=== PATIENT | female | born 1970 | race Two or more races ===

== ENCOUNTER 2016-06-24 13:40 | Emergency (ER) | payer SELFPAY ==
--- NOTE | 2016-06-24 14:49 | EDM.PDOC ---
ED HPI ENT - General Chief Complaint: ENT Problem Stated Complaint: RT SIDE OF FACE HURTS Time Seen by Provider: 06/24/16 14:20 Source of Information: Reports: Patient History Limitations: Reports: No limitations - History of Present Illness INITIAL COMMENTS - FREE TEXT/NARRATIVE: History of present illness: 46-year-old Pashto-speaking patient presenting with acute pain in the ear and throat. With the use of intraoperative device JAREN was able to dialogue with patient and complete a thorough H&P which indicated patient has had chronic ear infections, throat infections, and some questionable ambiguous history of your ear nose and throat concerns that she was not able to clarify. Family is present and there also attempting to help.] Review of systems: As per history of present illness and below otherwise all systems reviewed and negative. Past medical history: As per history of present illness and as reviewed below otherwise noncontributory. Surgical history: As per history of present illness and as reviewed below otherwise noncontributory. Social history: No reported history of drug or alcohol abuse. Family history: As per history of present illness and as reviewed below otherwise noncontributory. Physical exam: HEENT: Atraumatic, normocephalic, pupils reactive, negative for conjunctival pallor or scleral icterus, mucous membranes moist with right tonsil noted to have significant amount of edema and crit to compare appearance more so than the left, uvula continues to be midline, but there is a erythematous appearance to the external skin over the eustachian tube and into the throat area consistent with the area of inflammation internally, neck supple, nontender, trachea midline. Lungs: Clear to auscultation, breath sounds equal bilaterally, chest nontender. Heart: S1S2, regular, negative for clicks, rubs, or JVD. Abdomen: Soft, nondistended, nontender. Negative for masses or hepatosplenomegaly. Negative for costovertebral tenderness. Pelvis: Stable nontender. Genitourinary: Deferred. Rectal: Deferred. Extremities: Atraumatic, negative for cords or calf pain. Neurovascular unremarkable. Neuro: Awake, alert, oriented. Cranial nerves II through XII unremarkable. Cerebellum unremarkable. Motor and sensory unremarkable throughout. Exam nonfocal. Diagnostics: [Rapid strep.] Therapeutics: [] Impression: [Tonsillitis] Plan: [Necrotic followup with ENT] Definitive disposition and diagnosis as appropriate pending reevaluation and review of above. - Related Data Allergies/ADRs: Allergies Allergy/AdvReac Type Severity Reaction Status Date / Time No Known Allergies Allergy Verified 06/24/16 14:20 Home Meds: Home Meds Amoxicillin/Potassium Clav [Augmentin 875-125 Tablet] 1 each PO BID #20 tablet 06/24/16 [Rx] Past Medical History - Past Health History Medical/Surgical History: Denies Medical/Surgical History Social & Family History - Family History Family Medical History: Noncontributory - Tobacco Use Smoking Status *Q: Never Smoker - Recreational Drug Use Recreational Drug Use: No ED ROS ENT - Review of Systems Review Of Systems: See Below (See history of present illness) ED EXAM, ENT - Physical Exam Exam: See Below (See history of present illness) Course - Vital Signs Last Recorded V/S: Last Vital Signs Temp 36.6 C 06/24/16 15:38 Pulse 66 06/24/16 15:38 Resp 18 06/24/16 14:20 BP 129/93 H 06/24/16 15:38 Pulse Ox 99 06/24/16 14:20 - Orders/Labs/Meds Orders: Active Orders 24 hr Category Date Time Status CULTURE STREP A CONFIRMATION [RM] Stat Lab 06/24/16 15:00 Results STREP SCRN A RAPID W CULT CONF [RM] Stat Lab 06/24/16 15:00 Results Sodium Chloride 0.9% [Normal Saline] 1,000 ml Med 06/24/16 15:12 Active IV STAT Medication Orders Sodium Chloride (Normal Saline) 1,000 mls @ 999 mls/hr IV STAT ONE Stop: 06/24/16 16:12 Last Admin: 06/24/16 15:37 Dose: 999 mls/hr Labs: Laboratory Tests 06/24/16 06/24/16 Range/Units 15:18 15:18 WBC 6.16 (4.0-11.0) K/uL RBC 4.28 L (4.30-5.90) M/uL Hgb 13.1 (12.0-16.0) g/dL Hct 38.7 (36.0-46.0) % MCV 90.4 (80.0-98.0) fL MCH 30.6 (27.0-32.0) pg MCHC 33.9 (31.0-37.0) g/dL RDW Std Deviation 42.1 (28.0-62.0) fl RDW Coeff of Josie 13 (11.0-15.0) % Plt Count 268 (150-400) K/uL MPV 9.40 (7.40-12.00) fL Neut % (Auto) 60.2 (48.0-80.0) % Lymph % (Auto) 31.2 (16.0-40.0) % Gulf % (Auto) 5.5 (0.0-15.0) % Eos % (Auto) 2.6 (0.0-7.0) % Baso % (Auto) 0.5 (0.0-1.5) % Neut # (Auto) 3.7 (1.4-5.7) K/uL Lymph # (Auto) 1.9 (0.6-2.4) K/uL Gulf # (Auto) 0.3 (0.0-0.8) K/uL Eos # (Auto) 0.2 (0.0-0.7) K/uL Baso # (Auto) 0.0 (0.0-0.1) K/uL Nucleated RBC % 0.0 /100WBC Nucleated RBCs # 0 K/uL Sodium 140 (136-146) mmol/L Potassium 4.0 (3.5-5.1) mmol/L Chloride 108 (98-110) mmol/L Carbon Dioxide 24 (21-31) mmol/L BUN 8 (6.0-23.0) mg/dL Creatinine 0.7 (0.6-1.5) mg/dL Est Cr Clr Drug Dosing 91.00 mL/min Estimated GFR (MDRD) > 60.0 ml/min Glucose 91 (60-110) mg/dL Calcium 9.2 (8.8-10.8) mg/dL Total Bilirubin 1.0 (0.1-1.5) mg/dL AST 17 (5-40) IU/L ALT 14 (8-54) IU/L Alkaline Phosphatase 82 (40-150) Total Protein 7.6 (6.0-8.0) g/dL Albumin 4.1 (3.5-5.0) g/dL Globulin 3.5 (2.0-3.5) g/dL Albumin/Globulin Ratio 1.2 L (1.3-2.8) Meds: Medications Generic Name Dose Route Start Last Admin Trade Name Selin PRN Reason Stop Dose Admin Sodium Chloride 1,000 mls @ 999 mls/hr 06/24/16 15:12 06/24/16 15:37 Normal Saline IV 06/24/16 16:12 999 mls/hr STAT ONE Administration Departure - Departure Time of Disposition: 16:04 Disposition: Home, Self-Care 01 Condition: good Clinical Impression: Tonsillitis Prescriptions: Amoxicillin/Potassium Clav [Augmentin 875-125 Tablet] 1 each PO BID #20 tablet Instructions: Pharyngitis, [id number] Referrals: PCP,Stacia [Primary Care Provider] - Liz Matos PA [Physician Signing Agent] - Forms: ED Department Discharge Additional Instructions: The following information is given to patients seen in the emergency department who are being discharged to home. This information is to outline your options for follow-up care. We provide all patients seen in our emergency department with a follow-up referral. The need for follow-up, as well as the timing and circumstances, are variable depending upon the specifics of your emergency department visit. If you don't have a primary care physician on staff, we will provide you with a referral. We always advise you to contact your personal physician following an emergency department visit to inform them of the circumstance of the visit and for follow-up with them and/or the need for any referrals to a consulting specialist. The emergency department will also refer you to a specialist when appropriate. This referral assures that you have the opportunity for follow-up care with a specialist. All of these measure are taken in an effort to provide you with optimal care, which includes your follow-up. Under all circumstances we always encourage you to contact your private physician who remains a resource for coordinating your care. When calling for follow-up care, please make the office aware that this follow-up is from your recent emergency room visit. If for any reason you are refused follow-up, please contact the [facility] Emergency Department at and asked to speak to the emergency department charge nurse. Take medication as directed Followup ENT as discussed Return to ER as needed as discussed [facility] - ENT [facility] [address] [place] [id number] - My Orders Last 24 Hours: My Active Orders 06/24/16 15:00 CULTURE STREP A CONFIRMATION [RM] Stat STREP SCRN A RAPID W CULT CONF [RM] Stat 06/24/16 15:12 Sodium Chloride 0.9% [Normal Saline] 1,000 ml IV STAT - Assessment/Plan Last 24 Hours: My Active Orders 06/24/16 15:00 CULTURE STREP A CONFIRMATION [RM] Stat STREP SCRN A RAPID W CULT CONF [RM] Stat 06/24/16 15:12 Sodium Chloride 0.9% [Normal Saline] 1,000 ml IV STAT
[2016-06-24] MEDS ORDERED: Sodium Chloride 0.9% 1,000 ML IV ONE (15:12)
[2016-06-24 15:45] LABS: CHLORIDE,CL 108 mmol/L (98-110); SODIUM,NA 140 mmol/L (136-146)
[2016-06-24 16:37] VITALS: BP 139/80
== END 2016-06-24 16:30 | disposition home or self-care (01) ==
LOC: MW.ED 13:40
DX: J03.90 Acute tonsillitis, unspecified (principal)
CPT/HCPCS: 36415; 80053; 85025; 87081; 87880; 96360; 99283; J7040

== ENCOUNTER 2017-02-20 16:54 | Emergency (ER) | payer SELFPAY | END 2017-02-20 17:09 | disposition left against medical advice (07) | LOC: MW.ED 16:54 | DX: Z53.21 Procedure and treatment not carried out due to patient leaving prior to being seen by health care provider (principal) ==

== ENCOUNTER 2017-02-20 20:07 | Emergency (ER) | payer SELFPAY ==
--- NOTE | 2017-02-20 21:29 | EDM.PDOC ---
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 When I interviewed the patient she is having regular periods and in fact had one in January but she did not get her period This month and they were concerned that she could be and he was asking questions about her potential to get going forward at her age. She has not had any headache chest pain shortness of breath abdominal pain nausea vomiting urinary complaints or vaginal bleeding. She does not have a local care provider. She has no history of hypertension despite her triage blood pressure Review of systems: As per history of present illness and below otherwise all systems reviewed and negative. Past medical history: As per history of present illness and as reviewed below otherwise noncontributory. Surgical history: As per history of present illness and as reviewed below otherwise noncontributory. Social history: No reported history of drug or alcohol abuse. Family history: As per history of present illness and as reviewed below otherwise noncontributory. Physical exam: Gen.: Well-developed well-nourished female who is nontoxic and vital signs been reviewed by me HEENT: Atraumatic, normocephalic, negative for conjunctival pallor or scleral icterus, mucous membranes moist, neck supple, nontender, trachea midline. Lungs: Clear to auscultation, breath sounds equal bilaterally, chest nontender. Heart: S1S2, regular rate and rhythm no overt murmurs. Abdomen: Soft, nondistended, nontender. NABS Pelvis: Deferred Genitourinary: Deferred. Rectal: Deferred. Extremities: Atraumatic, negative for cords or calf pain. Neurovascular unremarkable. Neuro: Awake, alert, oriented. Cranial nerves II through XII unremarkable. Cerebellum unremarkable. Motor and sensory unremarkable throughout. Exam nonfocal. Diagnostics: Urine test Therapeutics: [] Discussed with the patient and the that currently her test is negative but as it is not been a complete month since her last period that would need to be rechecked. If she does not get her period she would need to seek care in the clinic to evaluate why that is occurring. I also informed him that I would not be able to do any testing to determine her level of fertility at this point and again that will be a clinic visit and evaluation. I did discuss with him and the patient her blood pressure and the need to follow-up with that in the clinic as she is not having any end organ issues and that might need to be addressed with medication going forward. I advised her on dietary restrictions of salt. Impression: Missed menstrual cycle, worried well, rule out new hypertension asymptomatic Definitive disposition and diagnosis as appropriate pending reevaluation and review of above. Headache Pain Score (Numeric/FACES): 7 - Related Data Allergies Allergy/AdvReac Type Severity Reaction Status Date / Time No Known Allergies Allergy Verified 02/20/17 21:13 Home Meds: Home Meds . 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 ED EXAM, GENERAL - Physical Exam Exam: See Below (see dictation) Course - Vital Signs Last Recorded V/S: Last Vital Signs Temp 35.3 C 02/20/17 21:10 Pulse 65 02/20/17 21:10 Resp 12 02/20/17 21:10 BP 161/101 H 02/20/17 21:10 Pulse Ox 100 02/20/17 21:10 - Orders/Labs/Meds Labs: Laboratory Tests 02/20/17 Range/Units 20:45 Urine HCG, Qual NEGATIVE (NEGATIVE) Departure - Departure Time of Disposition: 21:28 Disposition: Home, Self-Care 01 Condition: Good Clinical Impression: Worried well Hypertension Qualifiers: Hypertension type: unspecified Qualified Code(s): I10 - Essential (primary) hypertension - Discharge Information Referrals: PCP,None [Primary Care Provider] - Additional Instructions: The following information is given to patients seen in the emergency department who are being discharged to home. This information is to outline your options for follow-up care. We provide all patients seen in our emergency department with a follow-up referral. The need for follow-up, as well as the timing and circumstances, are variable depending upon the specifics of your emergency department visit. If you don't have a primary care physician on staff, we will provide you with a referral. We always advise you to contact your personal physician following an emergency department visit to inform them of the circumstance of the visit and for follow-up with them and/or the need for any referrals to a consulting specialist. The emergency department will also refer you to a specialist when appropriate. This referral assures that you have the opportunity for followup care with a specialist. All of these measure are taken in an effort to provide you with optimal care, which includes your followup. Under all circumstances we always encourage you to contact your private physician who remains a resource for coordinating your care. When calling for followup care, please make the office aware that this follow-up is from your recent emergency room visit. If for any reason you are refused follow-up, please contact the [facility] emergency department at and ask to speak to the emergency department charge nurse. [facility] Primary care- Internal Medicine and Family [address] [address] [facility] Primary care-Women's Health [address] [place] [id number] Please contact our clinic for follow-up appointment to address issues with her menstrual cycle as we discussed. Please also discussed with the clinic your blood pressure. Please reduce or eliminate salt in her diet and return to ER as needed and as discussed
[2017-02-21 00:27] VITALS: BP 160/86
== END 2017-02-20 22:00 | disposition home or self-care (01) ==
LOC: MW.ED 20:07
DX: I10 Essential (primary) hypertension (principal); N92.6 Irregular menstruation, unspecified
CPT/HCPCS: 81025; 99283

== ENCOUNTER 2017-02-24 14:27 | Emergency (ER) | payer SELFPAY ==
--- NOTE | 2017-02-24 15:45 | EDM.PDOC ---
ED HPI GENERAL MEDICAL PROBLEM - General Chief Complaint: General Stated Complaint: PT WOULD LIKE TO BE CHECK Time Seen by Provider: 02/24/17 15:20 - History of Present Illness INITIAL COMMENTS - FREE TEXT/NARRATIVE: 46 year old fm presents to ED with questions regarding her fertility. She does not speak Yoruba but does and is interpreting for her. She is wondering if she is still fertile because she would like to have a baby. She is still menstruating regularly every month and denies any changes in her menstrual cycle. She does not have a PCP or [facility] doc she sees here. - Related Data Allergies Allergy/AdvReac Type Severity Reaction Status Date / Time No Known Allergies Allergy Verified 02/24/17 15:02 Home Meds: Home Meds . [No Known Home Meds] 02/20/17 [History] Past Medical History - Past Health History Medical/Surgical History: Denies Medical/Surgical History [employer] History: Reports: Endocrine/Metabolic History: Reports: Diabetes, Type I Other Endocrine/Metabolic History: Does not take insulin, does check BG regularly, it runs in the 140s Social & Family History - Family History Family Medical History: Noncontributory - Tobacco Use Smoking Status *Q: Never Smoker Second Hand Smoke Exposure: No - Caffeine Use Caffeine Use: Reports: None - Recreational Drug Use Recreational Drug Use: No ED ROS GENERAL - Review of Systems Review Of Systems: See Below Constitutional: Reports: No Symptoms HEENT: Reports: No Symptoms Respiratory: Reports: No Symptoms Cardiovascular: Reports: No Symptoms Endocrine: Reports: No Symptoms GI/Abdominal: Reports: No Symptoms : Reports: No Symptoms Musculoskeletal: Reports: No Symptoms Skin: Reports: No Symptoms Neurological: Reports: No Symptoms Psychiatric: Reports: No Symptoms Hematologic/Lymphatic: Reports: No Symptoms Immunologic: Reports: No Symptoms ED EXAM, GENERAL - Physical Exam Exam: See Below Exam Limited By: Other General Appearance: Alert, WD/WN, No Apparent Distress Ears: Normal External Exam Nose: Normal Inspection Throat/Mouth: Normal Inspection Head: Atraumatic, Normocephalic Neck: Normal Inspection Respiratory/Chest: No Respiratory Distress, Lungs Clear, Normal Breath Sounds Cardiovascular: Normal Peripheral Pulses, Regular Rate, Rhythm GI/Abdominal: Normal Bowel Sounds, Soft, Non-Tender, No Distention Back Exam: Normal Inspection Extremities: Normal Inspection, Non-Tender, No Pedal Edema, Normal Capillary Refill Neurological: Alert, Oriented Psychiatric: Normal Affect Skin Exam: Warm, Dry, Intact Lymphatic: No Adenopathy Course - Vital Signs Last Recorded V/S: Last Vital Signs Temp 36.6 C 02/24/17 14:58 Pulse 65 02/24/17 14:58 Resp 16 02/24/17 14:58 BP 137/84 02/24/17 14:58 Pulse Ox 100 02/24/17 14:58 Departure - Departure Time of Disposition: 15:46 Disposition: Home, Self-Care 01 Condition: Good Clinical Impression: Encounter for fertility planning - Discharge Information Referrals: PCP,None [Primary Care Provider] - Dwayne Finney MD [Physician] - (appointment scheduled for March 17, 2017 at 3: 00 pm ) Additional Instructions: The following information is given to patients seen in the emergency department who are being discharged to home. This information is to outline your options for follow-up care. We provide all patients seen in our emergency department with a follow-up referral. The need for follow-up, as well as the timing and circumstances, are variable depending upon the specifics of your emergency department visit. If you don't have a primary care physician on staff, we will provide you with a referral. We always advise you to contact your personal physician following an emergency department visit to inform them of the circumstance of the visit and for follow-up with them and/or the need for any referrals to a consulting specialist. The emergency department will also refer you to a specialist when appropriate. This referral assures that you have the opportunity for followup care with a specialist. All of these measure are taken in an effort to provide you with optimal care, which includes your followup. Under all circumstances we always encourage you to contact your private physician who remains a resource for coordinating your care. When calling for followup care, please make the office aware that this follow-up is from your recent emergency room visit. If for any reason you are refused follow-up, please contact the [facility] emergency department at and asked to speak to the emergency department charge nurse. - Problem List Review Problem List Initiated/Reviewed/Updated: Yes - Assessment/Plan Plan: Diagnostics: none Therapeutics: none Assessment: questions regarding Fertility Plan: f/u with [facility] - appointment scheduled for 03/17/17
[2017-02-24 16:11] VITALS: BP 146/91
== END 2017-02-24 16:05 | disposition home or self-care (01) ==
LOC: MW.ED 14:27
DX: Z31.41 Encounter for fertility testing (principal); E10.9 Type 1 diabetes mellitus without complications
CPT/HCPCS: 99282

== ENCOUNTER 2017-04-18 18:52 | Emergency (ER) | payer SELFPAY ==
--- NOTE | 2017-04-18 19:26 | EDM.PDOC ---
ED HPI GENERAL MEDICAL PROBLEM - General Chief Complaint: General Stated Complaint: RAPID WEIGHT LOSS, NERVOUS Time Seen by Provider: 04/18/17 19:13 Source of Information: Reports: Patient History Limitations: Reports: No Limitations - History of Present Illness INITIAL COMMENTS - FREE TEXT/NARRATIVE: HISTORY AND PHYSICAL: History of present illness: Patient is a 47-year-old female who presents to the emergency room today with complaints of rapid weight loss and feeling nervous over the past 3 weeks. The at the bedside states that she has in her mid back to upper neck and bilateral ear pain. She is concerned as she has noticed a weight loss over the past 3 weeks and she feels "nervous all the time". The patient is unable to tell me how much weight she has lost over the past 3 weeks but "has no appetite ". does say they have had some recent "family issues" which has caused both of them increased stress. He is requesting that I give her medication to alleviate her anxiety. Review of systems: As per history of present illness and below otherwise all systems reviewed and negative. Past medical history: As per history of present illness and as reviewed below otherwise noncontributory. Surgical history: As per history of present illness and as reviewed below otherwise noncontributory. Social history: No reported history of drug or alcohol abuse. Family history: As per history of present illness and as reviewed below otherwise noncontributory. Physical exam: General: Well-developed and well-nourished 47-year-old female. Alert and oriented. Nontoxic appearing and in no acute distress. HEENT: Atraumatic, normocephalic, pupils reactive, negative for conjunctival pallor or scleral icterus, mucous membranes moist, TMs cloudy bilaterally with no bulging. Her throat is clear, neck supple, nontender, trachea midline. No meningeal signs. No drooling or trismus. Lungs: Clear to auscultation, breath sounds equal bilaterally, chest nontender. Heart: S1S2, regular rate and rhythm Abdomen: Soft, nondistended, nontender. Negative for masses or hepatosplenomegaly. Negative for costovertebral tenderness. Pelvis: Stable nontender. Genitourinary: Deferred. Rectal: Deferred. C-Spine/Back: No pinpoint vertebral tenderness upon palpation. No crepitus, step -offs or obvious deformities. Patient is ambulatory with a steady gait. Extremities: Atraumatic, moves all per self without difficulty or defecits, negative for cords or calf pain. Neurovascular unremarkable. Neuro: Awake, alert, oriented. Cranial nerves II through XII unremarkable. Cerebellum unremarkable. Motor and sensory unremarkable throughout. Exam nonfocal. All of her lab results today are normal. I have shared this information with the patient and . As we continued to talk about her follow-up care, they share that they are less concerned about her weight loss and are now inquiring about her overall health and why she is having difficulty getting . Patient has been seen twice in the emergency room in February 2017, with request for evaluation to assess her fertility. Patient and her have been trying to get for several months, without success. We did have a lengthy discussion that it not ideal for her to use the ED for family planning concerns. She has been referred to the women's health clinic and/or [facility]. Family is now requesting a prescription for her anxiety, encourage them to follow up with primary care or seek counseling for further management and care of this. Diagnostics: CBC, CMP, EKG, UA, HCGU, TSH Therapeutics: [] Impression: 1. Worried Well 2. Anxiety Plan: 1. All of her labs today were normal. 2. You may want to see a primary care provider or seek counseling for your anxiety that you have been experiencing. 3. Please follow-up with your primary care provider in the next 1-2 days. Return to the ED as needed and as discussed. Definitive disposition and diagnosis as appropriate pending reevaluation and review of above. Duration: Week(s):, Chronic Location: Reports: Generalized - Related Data Allergies Allergy/AdvReac Type Severity Reaction Status Date / Time No Known Allergies Allergy Verified 04/18/17 19:33 Home Meds: Home Meds . [No Known Home Meds] 02/20/17 [History] Past Medical History - Past Health History Medical/Surgical History: Denies Medical/Surgical History [employer] History: Reports: Endocrine/Metabolic History: Reports: Diabetes, Type I Other Endocrine/Metabolic History: Does not take insulin, does check BG regularly, it runs in the 140s Social & Family History - Family History Family Medical History: Noncontributory - Tobacco Use Smoking Status *Q: Never Smoker Second Hand Smoke Exposure: No - Caffeine Use Caffeine Use: Reports: None - Recreational Drug Use Recreational Drug Use: No ED ROS GENERAL - Review of Systems Review Of Systems: ROS reveals no pertinent complaints other than HPI. ED EXAM, GENERAL - Physical Exam Exam: See Below (See dictation) Course - Vital Signs Last Recorded V/S: Last Vital Signs Temp 97.7 F 04/18/17 19:05 Pulse 67 04/18/17 19:05 Resp 18 04/18/17 19:05 BP 124/85 04/18/17 19:05 Pulse Ox 98 04/18/17 19:05 - Orders/Labs/Meds Orders: Active Orders 24 hr Category Date Time Status EKG Documentation Completion [RC] STAT Care 04/18/17 19:26 Active CULTURE URINE [RM] Stat Lab 04/18/17 19:14 Received Labs: Laboratory Tests 04/18/17 04/18/17 04/18/17 Range/Units 19:29 19:29 19:29 WBC 8.41 (4.0-11.0) K/uL RBC 4.25 L (4.30-5.90) M/uL Hgb 13.1 (12.0-16.0) g/dL Hct 38.6 (36.0-46.0) % MCV 90.8 (80.0-98.0) fL MCH 30.8 (27.0-32.0) pg MCHC 33.9 (31.0-37.0) g/dL RDW Std Deviation 42.3 (28.0-62.0) fl RDW Coeff of Josie 13 (11.0-15.0) % Plt Count 265 (150-400) K/uL MPV 9.60 (7.40-12.00) fL Neut % (Auto) 65.4 (48.0-80.0) % Lymph % (Auto) 24.6 (16.0-40.0) % [place] % (Auto) 6.9 (0.0-15.0) % Eos % (Auto) 2.6 (0.0-7.0) % Baso % (Auto) 0.5 (0.0-1.5) % Neut # (Auto) 5.5 (1.4-5.7) K/uL Lymph # (Auto) 2.1 (0.6-2.4) K/uL [place] # (Auto) 0.6 (0.0-0.8) K/uL Eos # (Auto) 0.2 (0.0-0.7) K/uL Baso # (Auto) 0.0 (0.0-0.1) K/uL Nucleated RBC % 0.0 /100WBC Nucleated RBCs # 0 K/uL Sodium 139 (136-146) mmol/L Potassium 4.0 (3.5-5.1) mmol/L Chloride 107 (98-110) mmol/L Carbon Dioxide 24 (21-31) mmol/L BUN 19 (6.0-23.0) mg/dL Creatinine 0.9 (0.6-1.5) mg/dL Est Cr Clr Drug Dosing TNP Estimated GFR (MDRD) > 60.0 ml/min Glucose 109 (60-110) mg/dL Calcium 10.0 (8.8-10.8) mg/dL Total Bilirubin 0.6 (0.1-1.5) mg/dL AST 18 (5-40) IU/L ALT 16 (8-54) IU/L Alkaline Phosphatase 83 (40-150) Total Protein 7.4 (6.0-8.0) g/dL Albumin 4.1 (3.5-5.0) g/dL Globulin 3.3 (2.0-3.5) g/dL Albumin/Globulin Ratio 1.2 L (1.3-2.8) TSH 3rd Generation (0.47-5.0) uIU/mL Urine Color Urine Appearance Urine pH (5.0-8.0) Ur Specific [place] (1.001-1.035) Urine Protein (NEGATIVE) mg/dL Urine Glucose (UA) (NEGATIVE) mg/dL Urine Ketones (NEGATIVE) mg/dL Urine Occult Blood (NEGATIVE) Urine Nitrite (NEGATIVE) Urine Bilirubin (NEGATIVE) Urine Urobilinogen (<2.0) EU/dL Ur Leukocyte Esterase (NEGATIVE) Urine RBC (0-2/HPF) Urine WBC (0-5/HPF) Ur Epithelial Cells (NONE-FEW) Urine Bacteria (NEGATIVE) Urine HCG, Qual (NEGATIVE) Urine Opiates Screen NEGATIVE (NEGATIVE) Ur Oxycodone Screen NEGATIVE (NEGATIVE) Urine Methadone Screen NEGATIVE (NEGATIVE) Ur Barbiturates Screen NEGATIVE (NEGATIVE) Ur Phencyclidine Scrn NEGATIVE (NEGATIVE) Ur Amphetamine Screen NEGATIVE (NEGATIVE) U Methamphetamines Scrn NEGATIVE (NEGATIVE) U Benzodiazepines Scrn NEGATIVE (NEGATIVE) U Cocaine Metab Screen NEGATIVE (NEGATIVE) U Marijuana (THC) Screen NEGATIVE (NEGATIVE) 04/18/17 04/18/17 04/18/17 Range/Units 19:29 19:29 19:29 WBC (4.0-11.0) K/uL RBC (4.30-5.90) M/uL Hgb (12.0-16.0) g/dL Hct (36.0-46.0) % MCV (80.0-98.0) fL MCH (27.0-32.0) pg MCHC (31.0-37.0) g/dL RDW Std Deviation (28.0-62.0) fl RDW Coeff of Josie (11.0-15.0) % Plt Count (150-400) K/uL MPV (7.40-12.00) fL Neut % (Auto) (48.0-80.0) % Lymph % (Auto) (16.0-40.0) % [place] % (Auto) (0.0-15.0) % Eos % (Auto) (0.0-7.0) % Baso % (Auto) (0.0-1.5) % Neut # (Auto) (1.4-5.7) K/uL Lymph # (Auto) (0.6-2.4) K/uL [place] # (Auto) (0.0-0.8) K/uL Eos # (Auto) (0.0-0.7) K/uL Baso # (Auto) (0.0-0.1) K/uL Nucleated RBC % /100WBC Nucleated RBCs # K/uL Sodium (136-146) mmol/L Potassium (3.5-5.1) mmol/L Chloride (98-110) mmol/L Carbon Dioxide (21-31) mmol/L BUN (6.0-23.0) mg/dL Creatinine (0.6-1.5) mg/dL Est Cr Clr Drug Dosing Estimated GFR (MDRD) ml/min Glucose (60-110) mg/dL Calcium (8.8-10.8) mg/dL Total Bilirubin (0.1-1.5) mg/dL AST (5-40) IU/L ALT (8-54) IU/L Alkaline Phosphatase (40-150) Total Protein (6.0-8.0) g/dL Albumin (3.5-5.0) g/dL Globulin (2.0-3.5) g/dL Albumin/Globulin Ratio (1.3-2.8) TSH 3rd Generation 1.04 (0.47-5.0) uIU/mL Urine Color YELLOW Urine Appearance CLEAR Urine pH 6.0 (5.0-8.0) Ur Specific [place] 1.010 (1.001-1.035) Urine Protein NEGATIVE (NEGATIVE) mg/dL Urine Glucose (UA) NEGATIVE (NEGATIVE) mg/dL Urine Ketones NEGATIVE (NEGATIVE) mg/dL Urine Occult Blood SMALL H (NEGATIVE) Urine Nitrite NEGATIVE (NEGATIVE) Urine Bilirubin NEGATIVE (NEGATIVE) Urine Urobilinogen 0.2 (<2.0) EU/dL Ur Leukocyte Esterase NEGATIVE (NEGATIVE) Urine RBC 0-2 (0-2/HPF) Urine WBC 0-1 (0-5/HPF) Ur Epithelial Cells MODERATE (NONE-FEW) Urine Bacteria FEW (NEGATIVE) Urine HCG, Qual NEGATIVE (NEGATIVE) Urine Opiates Screen (NEGATIVE) Ur Oxycodone Screen (NEGATIVE) Urine Methadone Screen (NEGATIVE) Ur Barbiturates Screen (NEGATIVE) Ur Phencyclidine Scrn (NEGATIVE) Ur Amphetamine Screen (NEGATIVE) U Methamphetamines Scrn (NEGATIVE) U Benzodiazepines Scrn (NEGATIVE) U Cocaine Metab Screen (NEGATIVE) U Marijuana (THC) Screen (NEGATIVE) Meds: Medications Discontinued Medications Generic Name Dose Route Start Last Admin Trade Name Selin PRN Reason Stop Dose Admin Lorazepam 1 mg 04/18/17 20:20 Ativan PO 04/18/17 20:21 ONETIME ONE Departure - Departure Time of Disposition: 20:34 Disposition: Home, Self-Care 01 Clinical Impression: Worried well, Anxiety - Discharge Information Referrals: PCP,None [Primary Care Provider] - Forms: ED Department Discharge Additional Instructions: My general discharge The following information is given to patients seen in the emergency department who are being discharged to home. This information is to outline your options for follow-up care. We provide all patients seen in our emergency department with a follow-up referral. The need for follow-up, as well as the timing and circumstances, are variable depending upon the specifics of your emergency department visit. If you don't have a primary care physician on staff, we will provide you with a referral. We always advise you to contact your personal physician following an emergency department visit to inform them of the circumstance of the visit and for follow-up with them and/or the need for any referrals to a consulting specialist. The emergency department will also refer you to a specialist when appropriate. This referral assures that you have the opportunity for follow-up care with a specialist. All of these measure are taken in an effort to provide you with optimal care, which includes your follow-up. Under all circumstances we always encourage you to contact your private physician who remains a resource for coordinating your care. When calling for follow-up care, please make the office aware that this follow-up is from your recent emergency room visit. If for any reason you are refused follow-up, please contact the [facility] Emergency Department at and asked to speak to the emergency department charge nurse. [facility] [address] [place] [id number] [facility] [address] [place] [id number] 1. All of your labs today were normal. 2. You may want to see a primary care provider or seek counseling for your anxiety that you have been experiencing. We do not routine prescribe anxiety medications through the emergency room without involvement of a primary care provider for close follow up. 3. Follow up with the women's health clinic for further questions and concerns about fertility. The emergency room does not do fertility treatments or management. 4. Please follow-up with your primary care provider in the next 1-2 days. Return to the ED as needed and as discussed. - My Orders Last 24 Hours: My Active Orders 04/18/17 19:14 CULTURE URINE [RM] Stat 04/18/17 19:26 EKG Documentation Completion [RC] STAT - Assessment/Plan Last 24 Hours: My Active Orders 04/18/17 19:14 CULTURE URINE [RM] Stat 04/18/17 19:26 EKG Documentation Completion [RC] STAT
[2017-04-18 20:06] LABS: CHLORIDE,CL 107 mmol/L (98-110); SODIUM,NA 139 mmol/L (136-146)
[2017-04-18] MEDS ORDERED: LORazepam 1 MG Tab PO ONE (20:20)
[2017-04-19 02:59] VITALS: BP 117/81
== END 2017-04-18 20:57 | disposition home or self-care (01) ==
LOC: MW.ED 18:52
DX: F41.9 Anxiety disorder, unspecified (principal); E10.9 Type 1 diabetes mellitus without complications
CPT/HCPCS: 36415; 80053; 80305; 81001; 81025; 84443; 85025; 87086; 93005; 99284; 99284-25

== ENCOUNTER 2017-05-07 18:17 | Emergency (ER) | payer SELFPAY ==
[2017-05-07] MEDS ORDERED: Ketorolac 30 MG/ML SDV IM ONE (18:35)
--- NOTE | 2017-05-07 18:38 | EDM.PDOC ---
ED HPI GENERAL MEDICAL PROBLEM - General Chief Complaint: Headache Stated Complaint: HEADACHE Time Seen by Provider: 05/07/17 19:30 - History of Present Illness INITIAL COMMENTS - FREE TEXT/NARRATIVE: HISTORY AND PHYSICAL: History of present illness: Patient 47-year-old female presents with a concern of headache 4 days this has been unrelieved with Motrin or Tylenol is been no vomiting no numbness no weakness no visual disturbance she denies trauma denies neck pain stiffness fever chills or other complaints. Review of systems: As per history of present illness and below otherwise all systems reviewed and negative. Past medical history: As per history of present illness and as reviewed below otherwise noncontributory. Surgical history: As per history of present illness and as reviewed below otherwise noncontributory. Social history: No reported history of drug or alcohol abuse. Family history: As per history of present illness and as reviewed below otherwise noncontributory. Physical exam: HEENT: Atraumatic, normocephalic, pupils reactive, negative for conjunctival pallor or scleral icterus, mucous membranes moist, throat clear, neck supple, nontender, trachea midline. Lungs: Clear to auscultation, breath sounds equal bilaterally, chest nontender. Heart: S1S2, regular, negative for clicks, rubs, or JVD. Abdomen: Soft, nondistended, nontender. Negative for masses or hepatosplenomegaly. Negative for costovertebral tenderness. Pelvis: Stable nontender. Genitourinary: Deferred. Rectal: Deferred. Extremities: Atraumatic, negative for cords or calf pain. Neurovascular unremarkable. Neuro: Awake, alert, oriented. Cranial nerves II through XII unremarkable. Cerebellum unremarkable. Motor and sensory unremarkable throughout. Exam nonfocal. Diagnostics: CT brain Therapeutics: Toradol 30 mg IM Impression: #1 cephalgia Definitive disposition and diagnosis as appropriate pending reevaluation and review of above. headache Pain Score (Numeric/FACES): 10 - Related Data Allergies Allergy/AdvReac Type Severity Reaction Status Date / Time No Known Allergies Allergy Verified 05/07/17 18:32 Home Meds: Home Meds . 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 ED EXAM, GENERAL - Physical Exam Exam: See Below (See dictation) Course - Vital Signs Last Recorded V/S: Last Vital Signs Temp 36.8 C 05/07/17 20:20 Pulse 60 05/07/17 20:20 Resp 18 05/07/17 20:20 BP 153/95 H 05/07/17 20:20 Pulse Ox 98 05/07/17 20:20 - Orders/Labs/Meds Labs: Laboratory Tests 05/07/17 Range/Units 19:13 Urine HCG, Qual NEGATIVE (NEGATIVE) Meds: Medications Discontinued Medications Generic Name Dose Route Start Last Admin Trade Name Selin PRN Reason Stop Dose Admin Ketorolac Tromethamine 30 mg 05/07/17 18:35 05/07/17 19:34 Toradol IM 05/07/17 18:36 30 mg ONETIME ONE Administration Departure - Departure Time of Disposition: 18:37 Disposition: Home, Self-Care 01 Condition: Good Clinical Impression: Cephalgia - Discharge Information Instructions: General Headache Without Cause Referrals: PCP,None [Primary Care Provider] - Forms: ED Department Discharge Additional Instructions: The following information is given to patients seen in the emergency department who are being discharged to home. This information is to outline your options for follow-up care. We provide all patients seen in our emergency department with a follow-up referral. The need for follow-up, as well as the timing and circumstances, are variable depending upon the specifics of your emergency department visit. If you don't have a primary care physician on staff, we will provide you with a referral. We always advise you to contact your personal physician following an emergency department visit to inform them of the circumstance of the visit and for follow-up with them and/or the need for any referrals to a consulting specialist. The emergency department will also refer you to a specialist when appropriate. This referral assures that you have the opportunity for followup care with a specialist. All of these measure are taken in an effort to provide you with optimal care, which includes your followup. Under all circumstances we always encourage you to contact your private physician who remains a resource for coordinating your care. When calling for followup care, please make the office aware that this follow-up is from your recent emergency room visit. If for any reason you are refused follow-up, please contact the [facility] emergency department at and asked to speak to the emergency department charge nurse. [facility] Specialty Care - Neurology Professional Building [address] [place] [address], [address] [place] [address] Follow-up primary medical doctor as needed as discussed call to schedule routine appointment with neurology as needed as discussed and return as needed as discussed
[2017-05-07 20:22] VITALS: BP 153/95
--- NOTE | 2017-05-08 13:52 | CT ---
EXAM DATE: 05/07/17 PATIENT'S AGE: 47 Patient: YA PERSON Facility: [place], [place] Site . Site : [id number] Study: CT Head [id number]/[id number] 7:37:27 PM Ordering Physician: Doctor Patel Final Report: INDICATION: Headache. TECHNIQUE: Noncontrast axial images through the head with coronal and sagittal reconstructions. COMPARISON: None. FINDINGS: There is no abnormal intracranial mass effect or midline shift. No intracranial hemorrhage. No abnormal areas of attenuation identified within the brain. CSF spaces are age-appropriate. No acute osseous abnormality. There is chronic appearing mucoperiosteal thickening involving the right maxillary sinus. The remainder of the paranasal sinuses are essentially clear. Mastoids and middle ear cavities are clear. IMPRESSION: 1. There is no CT evidence of an acute intracranial abnormality. 2. Chronic appearing right maxillary sinusitis. Dictated by Armando Mercer MD @ 05/07/2017 7:44:31 PM Dictated by: Armando Mercer MD @ 05/07/2017 19:44:35 (Electronic Signature) Report Signed by Proxy. LORRI
== END 2017-05-07 20:20 | disposition home or self-care (01) ==
LOC: MW.ED 18:17
DX: R51 Headache (principal); E10.9 Type 1 diabetes mellitus without complications
CPT/HCPCS: 70450; 81025; 96372; 99284; J1885; 99283

== ENCOUNTER 2017-09-13 16:53 | Emergency (ER) | payer SELFPAY ==
[2017-09-13] MEDS ORDERED: Sodium Chloride 0.9% 10 ML Syringe FLUSH PRN (17:53)
[2017-09-13] MEDS ORDERED: Sodium Chloride 0.9% 2.5 ML Syringe FLUSH PRN (17:53)
--- NOTE | 2017-09-13 17:57 | EDM.PDOC ---
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 She reports she was going down a slide and pain began after this. She is having pain in that area with deep breaths. She denies any nausea, vomiting, diarrhea, SOB, TORRES, hemoptysis, chest pain/pressure, headache, dizziness. No bowel/bladder incontinence, no saddle anesthesia, and no LE numbness, tingling, pain. Type 1 diabetic, not taking insulin. Has an appointment to establish with PCP tomorrow. ] Review of systems: As per history of present illness and below otherwise all systems reviewed and negative. Past medical history: As per history of present illness and as reviewed below otherwise noncontributory. Surgical history: As per history of present illness and as reviewed below otherwise noncontributory. Social history: No reported history of drug or alcohol abuse. Family history: As per history of present illness and as reviewed below otherwise noncontributory. Physical exam: HEENT: Atraumatic, normocephalic, pupils reactive, negative for conjunctival pallor or scleral icterus, mucous membranes moist, throat clear, neck supple, nontender, trachea midline. Lungs: Clear to auscultation, breath sounds equal bilaterally, Heart: S1S2, regular, negative for clicks, rubs, or JVD. Abdomen: Soft, nondistended, nontender. Negative for masses or hepatosplenomegaly. Negative for costovertebral tenderness. Pelvis: Stable nontender. Genitourinary: Deferred. Rectal: Deferred. Musculoskeletal: Tender to palpation of the right posterior chest to the right flank. Extremities: Atraumatic, negative for cords or calf pain. Neurovascular unremarkable. Neuro: Awake, alert, oriented. Cranial nerves II through XII unremarkable. Cerebellum unremarkable. Motor and sensory unremarkable throughout. Exam nonfocal. Notes: Diagnostics: [CBC, CMP, UA, urine hcg, CXR] Therapeutics: [Ketorolac 60mg IM] Impression: [Chest wall contusion] Plan: [#1 Take diclofenac as instructed #2 Follow up with PCP #3 Return to ED as needed as discussed] Definitive disposition and diagnosis as appropriate pending reevaluation and review of above. Onset: Today upper back Pain Score (Numeric/FACES): 10 - Related Data Allergies Allergy/AdvReac Type Severity Reaction Status Date / Time No Known Allergies Allergy Verified 09/13/17 17:16 Home Meds: Home Meds . [No Known Home Meds] 09/13/17 [History] Past Medical History - Past Health History Medical/Surgical History: Denies Medical/Surgical History - Infectious Disease History Infectious Disease History: Reports: None Social & Family History - Family History Family Medical History: Noncontributory - Tobacco Use Smoking Status *Q: Never Smoker - Recreational Drug Use Recreational Drug Use: No ED ROS GENERAL - Review of Systems Review Of Systems: ROS reveals no pertinent complaints other than HPI. ED EXAM,LOWER BACK PAIN/INJURY - Physical Exam Exam: See Below (see dictation) Course - Vital Signs Last Recorded V/S: Last Vital Signs Temp 36.6 C 09/13/17 20:05 Pulse 69 09/13/17 20:05 Resp 17 09/13/17 20:05 BP 130/84 09/13/17 20:05 Pulse Ox 98 09/13/17 20:05 - Orders/Labs/Meds Orders: Active Orders 24 hr Category Date Time Status Chest 1V Frontal [CR] Stat Exams 09/13/17 19:08 Taken CULTURE STREP A CONFIRMATION [RM] Stat Lab 09/13/17 18:21 Results HCG QUALITATIVE,URINE [URCHEM] Stat Lab 09/13/17 17:56 Ordered STREP SCRN A RAPID W CULT CONF [RM] Stat Lab 09/13/17 18:21 Results UA W/MICROSCOPIC [URIN] Stat Lab 09/13/17 17:56 Ordered Sodium Chloride 0.9% [Saline Flush] Med 09/13/17 17:53 Active 10 ml FLUSH ASDIRECTED PRN Sodium Chloride 0.9% [Saline Flush] Med 09/13/17 17:53 Active 2.5 ml FLUSH ASDIRECTED PRN Saline Lock Insert [OM.PC] Stat Oth 09/13/17 17:53 Ordered Medication Orders Sodium Chloride (Saline Flush) 10 ml FLUSH ASDIRECTED PRN PRN Reason: Keep Vein Open Sodium Chloride (Saline Flush) 2.5 ml FLUSH ASDIRECTED PRN PRN Reason: Keep Vein Open Labs: Laboratory Tests 09/13/17 09/13/17 09/13/17 Range/Units 17:56 17:56 18:00 WBC 11.60 H (4.0-11.0) K/uL RBC 4.55 (4.30-5.90) M/uL Hgb 13.7 (12.0-16.0) g/dL Hct 40.2 (36.0-46.0) % MCV 88.4 (80.0-98.0) fL MCH 30.1 (27.0-32.0) pg MCHC 34.1 (31.0-37.0) g/dL RDW Std Deviation 39.8 (28.0-62.0) fl RDW Coeff of Josie 13 (11.0-15.0) % Plt Count 243 (150-400) K/uL MPV 9.50 (7.40-12.00) fL Neut % (Auto) 72.3 (48.0-80.0) % Lymph % (Auto) 20.2 (16.0-40.0) % [place] % (Auto) 6.6 (0.0-15.0) % Eos % (Auto) 0.7 (0.0-7.0) % Baso % (Auto) 0.2 (0.0-1.5) % Neut # (Auto) 8.4 H (1.4-5.7) K/uL Lymph # (Auto) 2.3 (0.6-2.4) K/uL [place] # (Auto) 0.8 (0.0-0.8) K/uL Eos # (Auto) 0.1 (0.0-0.7) K/uL Baso # (Auto) 0.0 (0.0-0.1) K/uL Nucleated RBC % 0.0 /100WBC Nucleated RBCs # 0 K/uL Sodium (136-145) mmol/L Potassium (3.5-5.1) mmol/L Chloride (98-107) mmol/L Carbon Dioxide (21.0-32.0) mmol/L BUN (7.0-18.0) mg/dL Creatinine (0.6-1.0) mg/dL Est Cr Clr Drug Dosing mL/min Estimated GFR (MDRD) ml/min Glucose (74-106) mg/dL Calcium (8.5-10.1) mg/dL Total Bilirubin (0.2-1.0) mg/dL AST (15-37) IU/L ALT (14-63) IU/L Alkaline Phosphatase (46-116) U/L Total Protein (6.4-8.2) g/dL Albumin (3.4-5.0) g/dL Globulin (2.0-3.5) g/dL Albumin/Globulin Ratio (1.3-2.8) Urine Color YELLOW Urine Appearance CLEAR Urine pH 7.5 (5.0-8.0) Ur Specific [place] 1.010 (1.001-1.035) Urine Protein NEGATIVE (NEGATIVE) mg/dL Urine Glucose (UA) NEGATIVE (NEGATIVE) mg/dL Urine Ketones NEGATIVE (NEGATIVE) mg/dL Urine Occult Blood NEGATIVE (NEGATIVE) Urine Nitrite NEGATIVE (NEGATIVE) Urine Bilirubin NEGATIVE (NEGATIVE) Urine Urobilinogen 0.2 (<2.0) EU/dL Ur Leukocyte Esterase NEGATIVE (NEGATIVE) Urine RBC 0-1 (0-2/HPF) Urine WBC 0-1 (0-5/HPF) Ur Epithelial Cells OCCASIONAL (NONE-FEW) Urine Bacteria RARE (NEGATIVE) Urine HCG, Qual NEGATIVE (NEGATIVE) 09/13/17 Range/Units 18:00 WBC (4.0-11.0) K/uL RBC (4.30-5.90) M/uL Hgb (12.0-16.0) g/dL Hct (36.0-46.0) % MCV (80.0-98.0) fL MCH (27.0-32.0) pg MCHC (31.0-37.0) g/dL RDW Std Deviation (28.0-62.0) fl RDW Coeff of Josie (11.0-15.0) % Plt Count (150-400) K/uL MPV (7.40-12.00) fL Neut % (Auto) (48.0-80.0) % Lymph % (Auto) (16.0-40.0) % [place] % (Auto) (0.0-15.0) % Eos % (Auto) (0.0-7.0) % Baso % (Auto) (0.0-1.5) % Neut # (Auto) (1.4-5.7) K/uL Lymph # (Auto) (0.6-2.4) K/uL [place] # (Auto) (0.0-0.8) K/uL Eos # (Auto) (0.0-0.7) K/uL Baso # (Auto) (0.0-0.1) K/uL Nucleated RBC % /100WBC Nucleated RBCs # K/uL Sodium 137 (136-145) mmol/L Potassium 3.6 (3.5-5.1) mmol/L Chloride 101 (98-107) mmol/L Carbon Dioxide 30.6 (21.0-32.0) mmol/L BUN 9 (7.0-18.0) mg/dL Creatinine 0.7 (0.6-1.0) mg/dL Est Cr Clr Drug Dosing 83.95 mL/min Estimated GFR (MDRD) > 60.0 ml/min Glucose 93 (74-106) mg/dL Calcium 9.4 (8.5-10.1) mg/dL Total Bilirubin 1.1 H (0.2-1.0) mg/dL AST 20 (15-37) IU/L ALT 25 (14-63) IU/L Alkaline Phosphatase 100 (46-116) U/L Total Protein 8.3 H (6.4-8.2) g/dL Albumin 4.1 (3.4-5.0) g/dL Globulin 4.2 H (2.0-3.5) g/dL Albumin/Globulin Ratio 1.0 L (1.3-2.8) Urine Color Urine Appearance Urine pH (5.0-8.0) Ur Specific [place] (1.001-1.035) Urine Protein (NEGATIVE) mg/dL Urine Glucose (UA) (NEGATIVE) mg/dL Urine Ketones (NEGATIVE) mg/dL Urine Occult Blood (NEGATIVE) Urine Nitrite (NEGATIVE) Urine Bilirubin (NEGATIVE) Urine Urobilinogen (<2.0) EU/dL Ur Leukocyte Esterase (NEGATIVE) Urine RBC (0-2/HPF) Urine WBC (0-5/HPF) Ur Epithelial Cells (NONE-FEW) Urine Bacteria (NEGATIVE) Urine HCG, Qual (NEGATIVE) Meds: Medications Generic Name Dose Route Start Last Admin Trade Name Freq PRN Reason Stop Dose Admin Sodium Chloride 10 ml 09/13/17 17:53 Saline Flush FLUSH ASDIRECTED PRN Keep Vein Open Sodium Chloride 2.5 ml 09/13/17 17:53 Saline Flush FLUSH ASDIRECTED PRN Keep Vein Open Discontinued Medications Generic Name Dose Route Start Last Admin Trade Name Freq PRN Reason Stop Dose Admin Ketorolac Tromethamine 60 mg 09/13/17 17:58 09/13/17 18:12 Toradol IM 09/13/17 17:59 60 mg ONETIME ONE Administration Ketorolac Tromethamine 30 mg 09/13/17 18:14 09/13/17 18:17 Toradol IVPUSH 09/13/17 18:15 30 mg ONETIME ONE Administration Departure - Departure Time of Disposition: 20:18 Disposition: Home, Self-Care 01 Condition: Good Clinical Impression: Chest wall contusion - Discharge Information Referrals: PCP,None [Primary Care Provider] - Forms: ED Department Discharge Additional Instructions: The following information is given to patients seen in the emergency department who are being discharged to home. This information is to outline your options for follow-up care. We provide all patients seen in our emergency department with a follow-up referral. The need for follow-up, as well as the timing and circumstances, are variable depending upon the specifics of your emergency department visit. If you don't have a primary care physician on staff, we will provide you with a referral. We always advise you to contact your personal physician following an emergency department visit to inform them of the circumstance of the visit and for follow-up with them and/or the need for any referrals to a consulting specialist. The emergency department will also refer you to a specialist when appropriate. This referral assures that you have the opportunity for follow-up care with a specialist. All of these measure are taken in an effort to provide you with optimal care, which includes your follow-up. Under all circumstances we always encourage you to contact your private physician who remains a resource for coordinating your care. When calling for follow-up care, please make the office aware that this follow-up is from your recent emergency room visit. If for any reason you are refused follow-up, please contact the [facility] Emergency Department at and asked to speak to the emergency department charge nurse. [facility] [address] [place] [phone] #1 Take diclofenac as instructed #2 Follow up with PCP #3 Return to ED as needed as discussed - My Orders Last 24 Hours: My Active Orders 09/13/17 17:53 Sodium Chloride 0.9% [Saline Flush] 10 ml FLUSH ASDIRECTED PRN Sodium Chloride 0.9% [Saline Flush] 2.5 ml FLUSH ASDIRECTED PRN Saline Lock Insert [OM.PC] Stat 09/13/17 17:56 HCG QUALITATIVE,URINE [URCHEM] Stat UA W/MICROSCOPIC [URIN] Stat 09/13/17 18:21 CULTURE STREP A CONFIRMATION [RM] Stat STREP SCRN A RAPID W CULT CONF [RM] Stat 09/13/17 19:08 Chest 1V Frontal [CR] Stat - Assessment/Plan Last 24 Hours: My Active Orders 09/13/17 17:53 Sodium Chloride 0.9% [Saline Flush] 10 ml FLUSH ASDIRECTED PRN Sodium Chloride 0.9% [Saline Flush] 2.5 ml FLUSH ASDIRECTED PRN Saline Lock Insert [OM.PC] Stat 09/13/17 17:56 HCG QUALITATIVE,URINE [URCHEM] Stat UA W/MICROSCOPIC [URIN] Stat 09/13/17 18:21 CULTURE STREP A CONFIRMATION [RM] Stat STREP SCRN A RAPID W CULT CONF [RM] Stat 09/13/17 19:08 Chest 1V Frontal [CR] Stat
[2017-09-13] MEDS ORDERED: Ketorolac 60 MG/2 ML SDV IM ONE (17:58)
[2017-09-13] MEDS ORDERED: Ketorolac 30 MG/ML SDV IVPUSH ONE (18:14)
[2017-09-13 18:55] LABS: CHLORIDE,CL 101 mmol/L (98-107); SODIUM,NA 137 mmol/L (136-145)
[2017-09-13 20:06] VITALS: BP 130/84
--- NOTE | 2017-09-14 10:36 | CR ---
EXAM DATE: 09/13/17 PATIENT'S AGE: 46 Patient: YA MCKEON Facility: [place], [place] Site . Site : 01/21/1971 Study: XRay Chest [id number]/4/2018 7:59:11 PM Ordering Physician: Doctor Patel Final Report: INDICATION: Upper back pain with breathing TECHNIQUE: Single-view chest. COMPARISON: None FINDINGS: Cardiovascular and mediastinum: Heart size is normal. Pulmonary vasculature is normal. Mediastinum is within normal limits. Lungs and pleural spaces: Prominent nipple shadow overlies the right lung base. Lungs are clear. No pleural effusion. No pneumothorax. Bones and soft tissues: No acute findings. IMPRESSION: No acute pulmonary process. Dictated by Abdoulaye Doe MD @ 09/13/2017 8:12:54 PM Dictated by: Abdoulaye Doe MD @ 09/13/2017 20:12:57 (Electronic Signature) Report Signed by Proxy. LORRI
== END 2017-09-13 20:30 | disposition home or self-care (01) ==
LOC: EDBD → MERGE 16:53 → MW.ED 16:53
DX: S20.211A Contusion of right front wall of thorax, initial encounter (principal); E10.9 Type 1 diabetes mellitus without complications; X58.XXXA Exposure to other specified factors, initial encounter
CPT/HCPCS: 36415; 71045; 80053; 81001; 81025; 85025; 87081; 87880; 96374; 99284; J1885

== ENCOUNTER 2018-07-21 21:09 | Emergency (ER) | payer SELFPAY ==
[2018-07-21 21:27] VITALS: BP 163/102
[2018-07-21] MEDS ORDERED: Ketorolac 60 MG/2 ML SDV IM ONE (21:36)
--- NOTE | 2018-07-21 21:41 | EDM.PDOC ---
ED HPI GENERAL MEDICAL PROBLEM - General Chief Complaint: COMMUNICATIONS INTERN Problem Stated Complaint: PERIOD CRAMPS Time Seen by Provider: 07/21/18 21:28 - History of Present Illness INITIAL COMMENTS - FREE TEXT/NARRATIVE: HISTORY AND PHYSICAL: History of present illness: The patient is a 48-year-old female who has a history of coming to the ED and I have seen her in the past for gynecologic issues and who presents with menstrual cramps and seeking pain management. The patient says she is having cramping which comes and goes and she has only taken Tylenol for the pain. She tells me through her that she has not followed up with a ict security specialist since the last time I saw her in February 2017. She said she has seen a provider but not a specific ict security specialist. She says she is using one pad every 4 hours but this is improved from yesterday and she is eating but not as much as the thinks is appropriate. The patient has had a prior ER visit for no appetite but again it is unclear about the follow-up. She is not dizzy or lightheaded and is doing her activities of daily living without issue. Review of systems: As per history of present illness and below otherwise all systems reviewed and negative. Past medical history: As per history of present illness and as reviewed below otherwise noncontributory. Surgical history: As per history of present illness and as reviewed below otherwise noncontributory. Social history: No reported history of drug or alcohol abuse. Family history: As per history of present illness and as reviewed below otherwise noncontributory. Physical exam: General: Well-developed well-nourished female who is nontoxic and vital signs are noted by me. She is laying in bed looking very comfortable with her arms overhead and her legs crossed. HEENT: Atraumatic, normocephalic, negative for conjunctival pallor or scleral icterus, mucous membranes moist, throat clear, neck supple, nontender, trachea midline. Lungs: Clear to auscultation, breath sounds equal bilaterally, chest nontender. Heart: S1S2, regular and rhythm no overt murmurs. Abdomen: Soft, nondistended, nontender. Negative for masses or hepatosplenomegaly. There is no tenderness on palpation of the lower abdomen and pelvic area and no rebound or guarding. Bowel sounds are normoactive Pelvis: Stable nontender. Genitourinary: Deferred. Rectal: Deferred. Extremities: Atraumatic, negative for cords or calf pain. Neurovascular unremarkable. Neuro: Awake, alert, oriented. Cranial nerves II through XII unremarkable. Cerebellum unremarkable. Motor and sensory unremarkable throughout. Exam nonfocal. Diagnostics: [] Therapeutics: Toradol IM I discussed with the patient has been in the room that the heavy menstrual bleeding and cramping may be a sign of the patient going through some early menopause or there may be some hormonal dysfunction all of which can be evaluated by the ict security specialist. She needs to be seeing a ict security specialist on a regular basis for well women checkups and I have stressed that. Advised pushing hydration trying to eat smaller more frequent meals. I will give her Naprosyn from [facility] for pain management and have discussed other [id number] options. Impression: Menorrhagia Definitive disposition and diagnosis as appropriate pending reevaluation and review of above. suprapubic Pain Score (Numeric/FACES): 10 - Related Data Allergies Allergy/AdvReac Type Severity Reaction Status Date / Time No Known Allergies Allergy Verified 02/14/18 20:17 Home Meds: Home Meds . [No Known Home Meds] 09/13/17 [History] Past Medical History - Past Health History Medical/Surgical History: Denies Medical/Surgical History HEENT History: Reports: None Cardiovascular History: Reports: None Respiratory History: Reports: None Gastrointestinal History: Reports: None Genitourinary History: Reports: None COMMUNICATIONS INTERN History: Reports: Musculoskeletal History: Reports: None Neurological History: Reports: None Psychiatric History: Reports: None Endocrine/Metabolic History: Reports: Diabetes, Type II Other Endocrine/Metabolic History: Does not take insulin, does check BG regularly, it runs in the 140s Hematologic History: Reports: None Immunologic History: Reports: None Oncologic (Cancer) History: Reports: None Dermatologic History: Reports: None - Infectious Disease History Infectious Disease History: Reports: None - Past Surgical History Head Surgeries/Procedures: Reports: None HEENT Surgical History: Reports: None Cardiovascular Surgical History: Reports: None Respiratory Surgical History: Reports: None GI Surgical History: Reports: None Female Surgical History: Reports: None Endocrine Surgical History: Reports: None Neurological Surgical History: Reports: None Musculoskeletal Surgical History: Reports: None Oncologic Surgical History: Reports: None Dermatological Surgical History: Reports: None Social & Family History - Family History Family Medical History: Noncontributory - Tobacco Use Smoking Status *Q: Never Smoker - Caffeine Use Caffeine Use: Reports: None - Recreational Drug Use Recreational Drug Use: No ED ROS GENERAL - Review of Systems Review Of Systems: ROS reveals no pertinent complaints other than HPI. ED EXAM, GENERAL - Physical Exam Exam: See Below (See dictation) Course - Vital Signs Last Recorded V/S: Last Vital Signs Temp 36.4 C 07/21/18 21:10 Pulse 61 07/21/18 21:10 Resp 18 07/21/18 21:10 BP 163/102 H 07/21/18 21:10 Pulse Ox 97 07/21/18 21:10 - Orders/Labs/Meds Orders: Active Orders 24 hr Category Date Time Status Ketorolac [Toradol] Med 07/21/18 21:36 Once 60 mg IM ONETIME ONE Medication Orders Ketorolac Tromethamine (Toradol) 60 mg IM ONETIME ONE Stop: 07/21/18 21:37 Meds: Medications Generic Name Dose Route Start Last Admin Trade Name Selin PRN Reason Stop Dose Admin Ketorolac Tromethamine 60 mg 07/21/18 21:36 Toradol IM 07/21/18 21:37 ONETIME ONE Departure - Departure Time of Disposition: 21:41 Disposition: Home, Self-Care 01 Condition: Good Clinical Impression: Menorrhagia Qualifiers: Menorrahagia type: with regular cycle Qualified Code(s): N92.0 - Excessive and frequent menstruation with regular cycle - Discharge Information Referrals: PCP,None [Primary Care Provider] - Additional Instructions: The following information is given to patients seen in the emergency department who are being discharged to home. This information is to outline your options for follow-up care. We provide all patients seen in our emergency department with a follow-up referral. The need for follow-up, as well as the timing and circumstances, are variable depending upon the specifics of your emergency department visit. If you don't have a primary care physician on staff, we will provide you with a referral. We always advise you to contact your personal physician following an emergency department visit to inform them of the circumstance of the visit and for follow-up with them and/or the need for any referrals to a consulting specialist. The emergency department will also refer you to a specialist when appropriate. This referral assures that you have the opportunity for followup care with a specialist. All of these measure are taken in an effort to provide you with optimal care, which includes your followup. Under all circumstances we always encourage you to contact your private physician who remains a resource for coordinating your care. When calling for followup care, please make the office aware that this follow-up is from your recent emergency room visit. If for any reason you are refused follow-up, please contact the [facility] emergency department at and ask to speak to the emergency department charge nurse. [facility] [address] [place], [place] [phone] [facility] [address] [phone] Push hydration and please call and schedule a follow-up appointment with one of our gynecologists using resources given to above. Use [id number] medications for pain and also try the Naprosyn as prescribed to you from [facility]. Return to ER as needed and as discussed - My Orders Last 24 Hours: My Active Orders 07/21/18 21:36 Ketorolac [Toradol] 60 mg IM ONETIME ONE - Assessment/Plan Last 24 Hours: My Active Orders 07/21/18 21:36 Ketorolac [Toradol] 60 mg IM ONETIME ONE
== END 2018-07-21 22:00 | disposition home or self-care (01) ==
LOC: MW.ED 21:09
DX: N92.0 Excessive and frequent menstruation with regular cycle (principal); E11.9 Type 2 diabetes mellitus without complications
CPT/HCPCS: 96372; 99283; J1885; 99282